=== PATIENT | female | born 1975 | race Caucasian/White ===

== ENCOUNTER 2017-08-07 10:21 | Emergency (ER) | payer BC, OTHER ==
[~2017-08-07] VITALS: Ht 175.3 cm; Wt 113.4 kg
[2017-08-07] MEDS ORDERED: ASPIRIN 81 MG CHEW (CHILDREN'S ASA) PO ONE (10:45)
[2017-08-07] MEDS ORDERED: NITROGLYCERIN 0.4 MG SL TABS BTL 25'S SL PRN (10:45)
[2017-08-07 10:48] LABS: BASOPHILS % (AUTO) 0 % (0-10); EOSINOPHILS # (AUTO) 0.2 10^3/uL (0.0-0.3); EOSINOPHILS % (AUTO) 3 % (0-10); HEMATOCRIT 44 % (35-52); HEMOGLOBIN 15.2 G/DL (11.5-16.0); LYMPHOCYTES # (AUTO) 2.8 X 10^3 (1.0-4.0); LYMPHOCYTES % (AUTO) 30 % (12-44); MEAN CORPUSCULAR HEMOGLOBIN 30 PG (25-34); MEAN CORPUSCULAR HGB CONC 35 G/DL (32-36); MEAN CORPUSCULAR VOLUME 85 FL (80-99); MEAN PLATELET VOLUME 11.1 FL (7.4-10.4); MONOCYTES # (AUTO) 0.6 X 10^3 (0.0-1.0); MONOCYTES % (AUTO) 6 % (0-12); NEUTROPHILS # (AUTO) 5.7 X 10^3 (1.8-7.8); NEUTROPHILS % (AUTO) 61 % (42-75); PLATELET COUNT 260 10^3/uL (130-400); RED BLOOD COUNT 5.13 10^6/uL (4.35-5.85); RED CELL DISTRIBUTION WIDTH 13.4 % (10.0-14.5); WHITE BLOOD COUNT 9.3 10^3/uL (4.3-11.0)
[2017-08-07 10:58] LABS: INR 1.1 (0.8-1.4); PROTHROMBIN TIME PATIENT 13.8 SEC (12.2-14.7)
[2017-08-07] MEDS ORDERED: ANTACID SUSP 30 ML UDC (MYLANTA) PO ONE (11:00)
[2017-08-07] MEDS ORDERED: LIDOCAINE 2% VISCOUS 15 ML UDC PO ONE (11:00)
[2017-08-07 11:06] LABS: ALANINE AMINOTRANSFERASE 34 U/L (0-55); ALBUMIN 3.9 GM/DL (3.2-4.5); ALKALINE PHOSPHATASE 60 U/L (40-136); BILIRUBIN,TOTAL 0.8 MG/DL (0.1-1.0); BUN/CREATININE RATIO 16; CARBON DIOXIDE 21 MMOL/L (21-32); CHLORIDE 106 MMOL/L (98-107); CREATININE SERUM 0.74 MG/DL (0.60-1.30); GFR ESTIMATED > 60; GLUCOSE 103 MG/DL (70-105); LIPASE 9 U/L (8-78); MAGNESIUM 1.8 MG/DL (1.8-2.4); POTASSIUM 3.9 MMOL/L (3.6-5.0); SODIUM 138 MMOL/L (135-145); TOTAL PROTEIN 7.2 GM/DL (6.4-8.2)
--- NOTE | 2017-08-07 11:08 | Diagnostic Imaging Report ---
EXAMINATION: Chest radiograph, portable AP view. DATE: 08/07/2017 at 1058 hours. INDICATION: 41-year-old female, chest pain. COMPARISON: 04/18/2007. FINDINGS: Heart size and mediastinal contours are unremarkable. There is no identified pneumothorax. There is no large pleural effusion. There is no identified focal airspace consolidation. Lung volumes are somewhat low. IMPRESSION: 1. Somewhat low lung volumes without identified acute cardiopulmonary abnormality. Dictated by: Dictated on workstation # [id number]
[2017-08-07 11:13] LABS: MYOGLOBIN SERUM 30.5 NG/ML (10.0-92.0)
--- NOTE | 2017-08-07 11:27 | ED Chest Pain ---
General Chief Complaint: Chest Pain Stated Complaint: CP, HIGH BLOOD PRESSURE Nursing Triage Note: PT CO OF CHEST PAIN FOR 2 DAYS STATES STARTED LAST PM AND RATES 5/10 Nursing Sepsis Screen: No Definite Risk Source: patient Exam Limitations: no limitations History of Present Illness Time seen by provider: 10:38 Initial Comments Here with complaint of central chest pain that radiates to both shoulders and to her back. Started at about 1030 last night and has been persistent since. Has a mild episode 2 days ago. Denies nausea, vomiting, sweating or breathing problems. Never had anything like this prior to these events. Has a cholecystectomy. Does not seem to be exacerbated or relieved by any specific thing. Timing/Duration: 12 hours Severity/Quality: moderate, aching Location: central Radiation: shoulders, back Activities at Onset: none Prior CP/Workup: no prior chest pain ASA po HAT RENOVATOR: No NTG SL HAT RENOVATOR: No Associated Symptoms: No abdominal pain, back pain, No diaphoresis, No fatigue, No fever/chills, No nausea/vomiting, No shortness of breath, No weakness Allergies and Home Medications Allergies Coded Allergies: cephalexin (Verified Allergy, Unknown, 08/07/17) Home Medications No Active Prescriptions or Reported Meds Review of Systems Constitutional: see HPI, No chills, No fever EENTM: No Symptoms Reported Respiratory: No Symptoms Reported, Denies Cough, Denies Shortness of Air, Denies Wheezing Cardiovascular: Chest Pain, Denies Edema, Denies Irregular Heart Rate, Denies Lightheadedness Gastrointestinal: See HPI, Denies Diarrhea, Denies Nausea, Denies Vomiting Genitourinary: No Symptoms Reported Musculoskeletal: see HPI, back pain, No joint pain Skin: no symptoms reported Psychiatric/Neurological: No Symptoms Reported All Other Systems Reviewed Negative Unless Noted: Yes Past Jkgawjc-Kzfcwi-Zydifp Hx Patient Social History Alcohol Use: Denies Use Recreational Drug Use: No Smoking Status: Never a Smoker Recent Foreign Travel: No Contact w/Someone Who Travel: No Recent Infectious Disease Expo: No Physical Abuse: No Sexual Abuse: No Surgeries History of Surgeries: Yes Surgeries: Gallbladder, Orthopedic Respiratory History of Respiratory Disorde: No Cardiovascular History of Cardiac Disorders: No Neurological History of Neurological Disord: No Reproductive System Last Menstrual Period: Jul 25, 2017 Genitourinary History of Genitourinary Disor: No Gastrointestinal History of Gastrointestinal Di: No Psychosocial Suicide Risk Score: 0 Reviewed Nursing Assessment Reviewed/Agree w Nursing PMH: Yes Family Medical History Significant Family History: No Pertinent Family Hx Physical Exam Vital Signs Vital Sign - Last 12Hours 08/07/17 10:25 Temp 98.1 Pulse 78 Resp 18 B/P (MAP) 137/98 (111) Pulse Ox 99 O2 Delivery Room Air Capillary Refill : Less Than 3 Seconds General Appearance: No Apparent Distress, WD/WN HEENT: PERRL/EOMI, Pharynx Normal Neck: Non Tender, Supple Respiratory: Lungs Clear, Normal Breath Sounds Cardiovascular: Regular Rate, Rhythm, No Murmur Gastrointestinal: Non Tender, Soft Extremity: Normal Range of Motion, Non Tender Neurologic/Psychiatric: Alert, Oriented x3 Skin: Normal Color, Warm/Dry Progress/Results/Core Measures Results/Orders Lab Results Laboratory Tests Test 08/07/17 10:35 08/07/17 13:03 Range/Units White Blood Count 9.3 4.3-11.0 10^3/uL Red Blood Count 5.13 4.35-5.85 10^6/uL Hemoglobin 15.2 11.5-16.0 G/DL Hematocrit 44 35-52 % Mean Corpuscular Volume 85 80-99 FL Mean Corpuscular Hemoglobin 30 25-34 PG Mean Corpuscular Hemoglobin Concent 35 32-36 G/DL Red Cell Distribution Width 13.4 10.0-14.5 % Platelet Count 260 130-400 10^3/uL Mean Platelet Volume 11.1 H 7.4-10.4 FL Neutrophils (%) (Auto) 61 42-75 % Lymphocytes (%) (Auto) 30 12-44 % Monocytes (%) (Auto) 6 0-12 % Eosinophils (%) (Auto) 3 0-10 % Basophils (%) (Auto) 0 0-10 % Neutrophils # (Auto) 5.7 1.8-7.8 X 10^3 Lymphocytes # (Auto) 2.8 1.0-4.0 X 10^3 Monocytes # (Auto) 0.6 0.0-1.0 X 10^3 Eosinophils # (Auto) 0.2 0.0-0.3 10^3/uL Basophils # (Auto) 0.0 0.0-0.1 10^3/uL Prothrombin Time 13.8 12.2-14.7 SEC INR Comment 1.1 0.8-1.4 Activated Partial Thromboplast Time 29 24-35 SEC D-Dimer < 0.27 0.00-0.49 UG/ML Sodium Level 138 135-145 MMOL/L Potassium Level 3.9 3.6-5.0 MMOL/L Chloride Level 106 98-107 MMOL/L Carbon Dioxide Level 21 21-32 MMOL/L Anion Gap 11 5-14 MMOL/L Blood Urea Nitrogen 12 7-18 MG/DL Creatinine 0.74 0.60-1.30 MG/DL Estimat Glomerular Filtration Rate > 60 BUN/Creatinine Ratio 16 Glucose Level 103 70-105 MG/DL Calcium Level 9.0 8.5-10.1 MG/DL Magnesium Level 1.8 1.8-2.4 MG/DL Total Bilirubin 0.8 0.1-1.0 MG/DL Aspartate Amino Transf (AST/SGOT) 27 5-34 U/L Alanine Aminotransferase (ALT/SGPT) 34 0-55 U/L Alkaline Phosphatase 60 40-136 U/L Myoglobin 30.5 28.3 10.0-92.0 NG/ML Troponin I < 0.30 <0.30 NG/ML Total Protein 7.2 6.4-8.2 GM/DL Albumin 3.9 3.2-4.5 GM/DL Lipase 9 8-78 U/L My Orders Orders - NICOLÁS RAMSEY MD Cbc With Automated Diff (08/07/17 10:42) Magnesium (08/07/17 10:42) Chest 1 View, Ap/Pa Only (08/07/17 10:42) Ekg Tracing (08/07/17 10:42) Cardiac Profile 1 (08/07/17 10:42) Comprehensive Metabolic Panel (08/07/17 10:42) Myoglobin Serum (08/07/17 10:42) Protime With Inr (08/07/17 10:42) Partial Thromboplastin Time (08/07/17 10:42) O2 (08/07/17 10:42) Monitor-Rhythm Ecg Trace Only (08/07/17 10:42) Lipid Panel (08/08/17 06:00) Aspirin Chewable Tablet (Baby Aspirin Ch (08/07/17 10:45) Nitroglycerin 0.4 Mg Btl 25's (Nitrostat (08/07/17 10:45) Saline Lock/Iv-Start (08/07/17 10:42) Lipase (08/07/17 10:42) Fibrin Degradation Products (08/07/17 10:42) Lidocaine 2% Viscous 15 Ml (Xylocaine Vi (08/07/17 11:00) Antacid Suspension (Mylanta Suspension (08/07/17 11:00) Ns Iv 1000 Ml (Sodium Chloride 0.9%) (08/07/17 11:49) Ekg Tracing (08/07/17 12:29) Troponin I (08/07/17 12:29) Myoglobin Serum (08/07/17 12:29) Medications Given in ED Current Medications Medications Dose Ordered Sig/Ronaldo Route Start Time Stop Time Status Last Admin Dose Admin Al Hydrox/Mg Hydrox/Simethicone 30 ml ONCE ONCE PO 08/07/17 11:00 08/07/17 11:01 DC 08/07/17 11:03 30 ML Aspirin 324 mg ONCE ONCE PO 08/07/17 10:45 08/07/17 10:46 DC 08/07/17 11:01 324 MG Lidocaine HCl 15 ml ONCE ONCE PO 08/07/17 11:00 08/07/17 11:01 DC 08/07/17 11:03 15 ML Nitroglycerin 0.4 mg UD PRN SL 08/07/17 10:45 08/07/17 11:00 0.4 MG Sodium Chloride 1,000 ml @ 0 mls/hr Q0M ONCE IV 08/07/17 11:49 08/07/17 11:50 DC 08/07/17 12:20 1,000 MLS/HR Vital Signs/I&O Vital Sign - Last 12Hours 08/07/17 08/07/17 08/07/17 10:25 10:25 13:25 Temp 98.1 Pulse 78 68 Resp 18 18 B/P (MAP) 137/98 (111) Pulse Ox 99 99 O2 Delivery Room Air Room Air Blood Pressure Mean: 111 Progress Note : Progress Note Seen and evaluated. IV, labs, EKG and chest x-ray ordered. ASA 324 mg by mouth and nitroglycerin sublingual ordered. GI cocktail ordered. Monitor patient. GI cocktail completely resolve pain. We will do to our recheck of labs and EKG. 1328: No acute findings. Discharged home with return precautions. Patient verbalize understanding instructions and agreement with plan. Case was discussed with Dr. Hess and he will see the patient in clinic on Wednesday or Wednesday. Patient is to call. We did leave a message with the clinic to call the patient. ECG Initial ECG Impression Date: Aug 07, 2017 Initial ECG Impression Time: 10:29 Initial ECG Rate: 84 Initial ECG Rhythm: Normal Sinus Initial ECG Impression: Normal Initial ECG Comparisson: No Previous ECG Available Comment Sinus rhythm with normal axis. No evidence of ST elevation RI. No previous available for comparison. Interpreted by me. EKG : EKG Time: 12:29 Rate: 78 Rhythm: Normal Sinus Intervals: Normal ECG Comparisson: Unchanged ECG Impression: Normal Comment Sinus rhythm with normal axis. No evidence of ST elevation RI. Similar to previous done earlier today. Interpreted by me. Diagnostic Imaging Diagonstic Imaging: Xray Plain Films/CT/US/NM/MRI: chest Comments VIA [place], [place] NAME: MAGGY PRUITT Jorge [facility] REC#: [id number] PT STATUS: REG ER : 1975 PHYSICIAN: NICOLÁS RAMSEY MD ADMIT DATE: 08/07/17/ER Draft Date of Exam:08/07/17 CHEST 1 VIEW, AP/PA ONLY EXAMINATION: Chest radiograph, portable AP view. DATE: 08/07/2017 at 1058 hours. INDICATION: 41-year-old female, chest pain. COMPARISON: 04/18/2007. FINDINGS: Heart size and mediastinal contours are unremarkable. There is no identified pneumothorax. There is no large pleural effusion. There is no identified focal airspace consolidation. Lung volumes are somewhat low. IMPRESSION: 1. Somewhat low lung volumes without identified acute cardiopulmonary abnormality. Dictated on workstation # [id number] Dict: 08/07/17 1105 Trans: 08/07/17 1107 [id number] Interpreted by: KASSIE CORDERO MD Electronically signed by: Departure Impression Impression: Primary Impression: Chest pain Qualified Codes: R07.9 - Chest pain, unspecified Disposition: HOME, SELF-CARE Condition: Improved Departure-Patient Inst. Decision time for Depature: 13:31 Referrals: SOBEIDA HESS MD [facility] NO,LOCAL PHYSICIAN (PCP) Primary Care Physician Patient Instructions: Chest Pain (DC), Acid Reflux (Gastroesophageal Reflux Disease), Adult (DC) Add. Discharge Instructions: All discharge instructions reviewed with patient and/or family. Voiced understanding. Call Dr. Hess's clinic on Wednesday morning for appointment Wednesday or Wednesday. He will see you in follow-up. You may consider using over-the- counter medicine such as omeprazole 14 day pack. Take that daily per package directions. Follow up with your DrSangeetha this week for recheck as well. Return for worse pain, fever, vomiting, weakness, breathing problems or other concerns as needed. Scripts No Active Prescriptions or Reported Meds Copy Copies To 1: SOBEIDA HESS MD [facility] NICOLÁS RAMSEY MD Aug 07, 2017 11:27
[2017-08-07] MEDS ORDERED: NS IV 1000 ML 1,000 ML IV ONE (11:49)
[2017-08-07 13:25] VITALS: BP 123/72
[2017-08-07 13:28] LABS: MYOGLOBIN SERUM 28.3 NG/ML (10.0-92.0)
== END 2017-08-07 13:37 | disposition home or self-care (01) ==
LOC: ER 10:23
DX: R07.89 Other chest pain (principal)
CPT/HCPCS: 36415; 71010; 80053; 83690; 83735; 83874; 84484; 85025; 85379; 85610; 85730; 93041